=== PATIENT | female | born 2000 | race Caucasian/White ===

== ENCOUNTER 2020-02-11 16:15 | Emergency (ER) | payer OTHER ==
[~2020-02-11] VITALS: Ht 152.4 cm; Wt 68.0 kg
[2020-02-11 16:59] VITALS: BP 134/87
[2020-02-11] MEDS ORDERED: ACETAMINOPHEN EXTRA STRENGTH 500 MG TAB PO ONE (17:05)
--- NOTE | 2020-02-11 17:15 | NUR ---
COVID POSITIVE PT C/O THROAT PRESSURE X 1 WK TESTED POSITIVE ON 02/09/20 MILD DYSPHAGIA TAKING IBUPROFEN 800 MG Q8H WITHOUT RELIEF, LAST TAKEN AT 8AM TODAY TACHY LOW 120, TEMP 100.6 AT TRIAGE ALERT, NO RESP DISTRESS HX- HYPOTHYROIDISM
--- NOTE | 2020-02-11 17:37 | NUR ---
ICE PACKS GIVEN TO PT AT THIS TIME FOR COOLING.
--- NOTE | 2020-02-11 18:21 | NUR ---
PER MONCHO PERALTA, NO FURTHER INTERVENTION FOR TEMP OF 100.5 AT THIS TIME MONCHO PERALTA AWARE OF HR 118
[2020-02-11] MEDS ORDERED: HYDROcodone/APAP 10/325 MG 1 TAB TAB PO PRN (19:30)
[2020-02-11 20:18] VITALS: BP 129/81
--- NOTE | 2020-02-11 20:19 | NUR ---
Patient discharged with v/s stable. Written and verbal after care instructions given and explained. Patient alert, oriented and verbalized understanding of instructions. Ambulatory with steady gait. All questions addressed prior to discharge. ID band removed. Patient advised to follow up with PMD. Rx of AMOXICILLIN AND NORCO given. Patient educated on indication of medication including possible reaction and side effects. Opportunity to ask questions provided and answered.
== END 2020-02-11 20:19 | disposition home or self-care (01) ==
LOC: MED 16:15
DX: U07.1 COVID-19 (principal); R50.9 Fever, unspecified; J02.9 Acute pharyngitis, unspecified
CPT/HCPCS: 99283

== ENCOUNTER 2022-01-06 01:52 | Emergency (ER) | payer OTHER ==
[~2022-01-06] VITALS: Ht 152.4 cm; Wt 82.6 kg
[2022-01-06 01:58] VITALS: BP 139/97
--- NOTE | 2022-01-06 02:06 | NUR ---
PT TAKEN TO BED 02.
--- NOTE | 2022-01-06 02:47 | NUR ---
21 Y/O FEMALE BIBS FROM HOME, C/O 01/25 CHEST TIGHTNESS NONRAD XFRIDAY. REPORTS SOB. STATES SHE HAD BOOSTER ON , SYMPTOMS BEGAN SINCE THEN. +H/A +SORE THROAT. UNLABORED BREATHING; A/OX4, GCS-15; AMBULATORY WITHOUT ASSISTANCE; -N/V/D. SKIN IS NORMAL, WARM, AND DRY. PT SEATED ON BED WITH HOB RAISED, BED IN LOWEST SETTING, AND RAIL UP X1. NO PMH NKA
--- NOTE | 2022-01-06 02:48 | NUR ---
DR. RECIO AT BEDSIDE FOR EXAMINATION
--- NOTE | 2022-01-06 03:11 | NUR ---
LAB KATIE AT BEDSIDE
[2022-01-06 03:18] LABS: BASOPHILS # (AUTO) 0.1 K/uL (0.00-0.22); EOSINOPHILS # (AUTO) 0.2 K/uL (0-0.4); EOSINOPHILS % (AUTO) 2.1 % (0.0-4.0); HEMATOCRIT 36.8 % (36-48); HEMOGLOBIN 12.4 g/dL (12.0-16.0); LYMPHOCYTES % (AUTO) 26.9 % (20.5-51.1); MEAN CORPUSCULAR HEMOGLOBIN 28 pg (27-31); MEAN CORPUSCULAR HGB CONC 34 g/dL (33-37); MEAN CORPUSCULAR VOLUME 83.6 fL (80-94); MONOCYTES # (AUTO) 0.7 K/uL (0.8-1.0); NEUTROPHILS # (AUTO) 4.4 K/uL (1.8-7.7); PLATELET COUNT (AUTO) 476 K/uL (140-450); RED CELL DISTRIBUTION WIDTH 13.5 % (11.6-13.7); WHITE BLOOD COUNT (AUTO) 7.4 K/uL (4.8-10.8)
[2022-01-06 03:56] LABS: ALBUMIN 3.7 g/dL (3.4-5.0); ASPARTATE AMINOTRANSFERASE 134 U/L (15-37); CARBON DIOXIDE 30.8 mmol/L (21-32); CHLORIDE 102 mmol/L (98-107); CREATININE 0.8 mg/dL (0.6-1.3); FREE T4 (FREE THYROXINE) 0.97 ng/dL (0.76-1.46); GFR ARICAN-AMERICAN 114 mL/min (>90); GLUCOSE 103 mg/dL (74-106); LIPASE 72 U/L (73-393); POTASSIUM 3.8 mmol/L (3.5-5.1); SODIUM SERUM 140 mmol/L (136-145); THYROID STIMULATING HORMONE 9.77 uIU/mL (0.34-3.74); TOTAL BILIRUBIN 0.5 mg/dL (0.0-1.0); UREA NITROGEN, BLOOD 9 mg/dL (7-18)
[2022-01-06] MEDS ORDERED: KETOROLAC 30 MG/ML VIAL ONE (04:07)
[2022-01-06] MEDS: KETOROLAC 30 MG/ML VIAL IM ONE (04:14)
--- NOTE | 2022-01-06 04:28 | NUR ---
CAMERON CARD ATBEDSIDE DISCUSSING PT RESULTS
[2022-01-06] MEDS ORDERED: NAPR-54 PO (04:31)
[2022-01-06 04:36] VITALS: BP 121/88
--- NOTE | 2022-01-06 04:37 | NUR ---
Patient discharged with v/s stable. Written and verbal after care instructions given and explained. Patient alert, oriented and verbalized understanding of instructions. Ambulatory with steady gait. All questions addressed prior to discharge. ID band removed. Patient advised to follow up with PMD. Rx of NAPROSYN given. Patient educated on indication of medication including possible reaction and side effects. Opportunity to ask questions provided and answered. VSS, A/OX4, UNLABORED BREATHING, AMBULATORY, AND CALM DEMEANOR.
== END 2022-01-06 04:36 | disposition home or self-care (01) ==
LOC: MED 01:52
DX: B34.9 Viral infection, unspecified (principal); R07.9 Chest pain, unspecified; J02.9 Acute pharyngitis, unspecified; R51.9 Headache, unspecified
CPT/HCPCS: 36415; 80053; 83690; 84439; 84443; 84484; 85025; 85379; 93005; 96372; 99284; J1885

== ENCOUNTER 2022-09-26 19:21 | Emergency (ER) | payer OTHER ==
[~2022-09-26] VITALS: Ht 152.4 cm; Wt 78.2 kg
[~2022-09-26 19:21] MED LIST: NAPR-54 PO
[2022-09-26 19:41] VITALS: BP 156/90
[2022-09-26 20:56] LABS: BASOPHILS # (AUTO) 0.1 K/uL (0.00-0.22); BASOPHILS % (AUTO) 0.6 % (0.0-2.0); EOSINOPHILS # (AUTO) 0.3 K/uL (0-0.4); EOSINOPHILS % (AUTO) 2.9 % (0.0-4.0); HEMATOCRIT 39.8 % (36-48); HEMOGLOBIN 13.1 g/dL (12.0-16.0); LYMPHOCYTES # (AUTO) 1.6 K/uL (2.5-16.5); LYMPHOCYTES % (AUTO) 13.7 % (20.5-51.1); MEAN CORPUSCULAR HEMOGLOBIN 28 pg (27-31); MEAN CORPUSCULAR HGB CONC 33 g/dL (33-37); MEAN CORPUSCULAR VOLUME 84.5 fL (80-94); MONOCYTES # (AUTO) 0.7 K/uL (0.8-1.0); MONOCYTES % (AUTO) 6.2 % (1.7-9.3); NEUTROPHILS # (AUTO) 8.9 K/uL (1.8-7.7); NEUTROPHILS % (AUTO) 76.6 % (42.2-75.2); PLATELET COUNT (AUTO) 485 K/uL (140-450); RED BLOOD CELL COUNT(AUTO) 4.71 MIL/uL (4.20-5.40); RED CELL DISTRIBUTION WIDTH 13.8 % (11.6-13.7); WHITE BLOOD COUNT (AUTO) 11.7 K/uL (4.8-10.8)
[2022-09-26 21:18] LABS: ALBUMIN 4.1 g/dL (3.4-5.0); ANION GAP 10.5 (8-16); ASPARTATE AMINOTRANSFERASE 157 U/L (15-37); CARBON DIOXIDE 29.5 mmol/L (21-32); CHLORIDE 101 mmol/L (98-107); CREATININE 0.9 mg/dL (0.6-1.3); GFR ARICAN-AMERICAN 99 mL/min (>90); GLUCOSE 86 mg/dL (74-106); SODIUM SERUM 137 mmol/L (136-145); TOTAL BILIRUBIN 0.4 mg/dL (0.0-1.0); UREA NITROGEN, BLOOD 9 mg/dL (7-18)
--- NOTE | 2022-09-26 21:18 | NUR ---
PT TO BED 11
--- NOTE | 2022-09-26 21:20 | NUR ---
Patient resting in bed, A/Ox4, chest rise and fall symmetrical, no s/s of distress, patient on monitor.
--- NOTE | 2022-09-26 21:40 | NUR ---
Edison cantu in [facility] - 09/26/22 at 2244 by [id number] Patient resting in bed, A/Ox4, chest rise and fall symmetrical, no s/s of distress, patient on monitor.
--- NOTE | 2022-09-26 22:30 | NUR ---
Patient resting in bed, A/Ox4, chest rise and fall symmetrical, no s/s of distress, patient on monitor.
[2022-09-26] MEDS ORDERED: ALUMINUM HYD/MAG/SIMETHICONE 30 ML UDC PO ONE (23:05)
[2022-09-26] MEDS ORDERED: FAMOTIDINE 20 MG TAB PO ONE (23:05)
[2022-09-26] MEDS ORDERED: FAMO-90 PO (23:45)
[2022-09-26 23:53] VITALS: BP 132/89
== END 2022-09-26 23:53 | disposition home or self-care (01) ==
LOC: MED 19:21
DX: K21.9 Gastro-esophageal reflux disease without esophagitis (principal); R74.01 Elevation of levels of liver transaminase levels; E03.9 Hypothyroidism, unspecified; Z79.899 Other long term (current) drug therapy
CPT/HCPCS: 36415; 71045; 80053; 84484; 85025; 93005; 99285

== ENCOUNTER 2023-07-29 12:26 | Emergency (ER) | payer OTHER ==
[~2023-07-29] VITALS: Ht 157.5 cm; Wt 72.6 kg
[~2023-07-29 12:26] MED LIST changes: +FAMO-90 PO
[2023-07-29 13:01] VITALS: BP 122/83; PULSE 98; RESP 18; TEMP 98; O2SAT 98
[2023-07-29 15:08] LABS: APPEARANCE,URINE CLEAR (CLEAR); BILIRUBIN,URINE NEGATIVE (NEGATIVE); BLOOD, URINE TRACE-I (NEGATIVE); COLOR,URINE YELLOW (YELLOW); LEUKOCYTE ESTERASE ,URINE TRACE (NEGATIVE); NITRITE, URINE NEGATIVE (NEGATIVE); PH,URINE 6.5 (5.0-9.0); PROTEIN,URINE NEGATIVE (NEGATIVE); UGLUCOSE NEGATIVE (NEGATIVE); UROBILINOGEN,URINE 0.2 EU/dL (0.2 - 1)
[2023-07-29 15:14] LABS: BACTERIA,URINE 0-2 /HPF (None Seen); RBC,URINE 0-5 /HPF (0-5); WBC,URINE 0-5 /HPF (0-5)
[2023-07-29 15:15] LABS: MUCUS,URINE 1+ /LPF (None Seen); SQUAMOUS EPITHELIAL CELL,UR 0-3 (FEW) /LPF (0-3 (FEW))
[2023-07-29] MEDS ORDERED: DICYCLOMINE HCL LIQUID 20 MG, ALUMINUM HYD/MAG/SIMETHICONE 30 ML, LIDOCAINE VISCOUS 2% ... PO ONE ×3 (15:30)
[2023-07-29] MEDS ORDERED: FAMOTIDINE 20 MG TAB PO ONE (15:30)
[2023-07-29 15:34] LABS: BASOPHILS % (AUTO) 0.3 % (0.0-2.0); EOSINOPHILS % (AUTO) 0.4 % (0.0-4.0); HEMATOCRIT 36.7 % (36-48); HEMOGLOBIN 12.1 g/dL (12.0-16.0); LYMPHOCYTES # (AUTO) 0.9 K/uL (2.5-16.5); LYMPHOCYTES % (AUTO) 8.2 % (20.5-51.1); MEAN CORPUSCULAR HEMOGLOBIN 28 pg (27-31); MEAN CORPUSCULAR HGB CONC 33 g/dL (33-37); MEAN CORPUSCULAR VOLUME 83.9 fL (80-94); MONOCYTES # (AUTO) 0.6 K/uL (0.8-1.0); MONOCYTES % (AUTO) 5.6 % (1.7-9.3); NEUTROPHILS # (AUTO) 9.3 K/uL (1.8-7.7); NEUTROPHILS % (AUTO) 85.5 % (42.2-75.2); PLATELET COUNT (AUTO) 484 K/uL (140-450); RED BLOOD CELL COUNT(AUTO) 4.37 MIL/uL (4.20-5.40); RED CELL DISTRIBUTION WIDTH 14.1 % (11.6-13.7); WHITE BLOOD COUNT (AUTO) 10.8 K/uL (4.8-10.8)
[2023-07-29] MEDS ORDERED: DICYCLOMINE HCL LIQUID 10 MG/5 ML UDC ONE (15:38)
[2023-07-29] MEDS ORDERED: ALUMINUM HYD/MAG/SIMETHICONE 30 ML UDC ONE (15:38)
[2023-07-29 15:39] LABS: ANION GAP 11.5 (8-16); CALCIUM 8.9 mg/dL (8.5-10.1); CARBON DIOXIDE 26.9 mmol/L (21-32); CREATININE 0.7 mg/dL (0.6-1.3); POTASSIUM 4.4 mmol/L (3.5-5.1)
[2023-07-29] MEDS ORDERED: ONDANSETRON 4 MG ODT PO ONE (15:40)
[2023-07-29 15:43] LABS: ALBUMIN 3.7 g/dL (3.4-5.0); BILIRUBIN,DIRECT 0.8 mg/dL (0.0-0.3); TOTAL BILIRUBIN 1.3 mg/dL (0.0-1.0); TOTAL PROTEIN, SERUM 8.5 g/dL (6.4-8.2)
[2023-07-29] MEDS ORDERED: MAG30ORA10 PO (18:19)
[2023-07-29] MEDS ORDERED: PANT40EC PO (18:19)
[2023-07-29] MEDS ORDERED: ONDA-188 PO (18:20)
== END 2023-07-29 18:45 | disposition home or self-care (01) ==
LOC: MED 12:26
DX: K80.50 Calculus of bile duct without cholangitis or cholecystitis without obstruction (principal); K21.9 Gastro-esophageal reflux disease without esophagitis; R74.01 Elevation of levels of liver transaminase levels; E03.9 Hypothyroidism, unspecified; Z79.899 Other long term (current) drug therapy
CPT/HCPCS: 36415; 71045; 76705; 80048; 80076; 81001; 81025; 83690; 85025; 93005; 99285; Q0162

== ENCOUNTER 2024-05-31 12:11 | Emergency (ER) | payer OTHER ==
[~2024-05-31] VITALS: Ht 152.4 cm; Wt 63.5 kg
[~2024-05-31 12:11] MED LIST changes: +MAG30ORA10 PO; +NAPR-337 PO; -NAPR-54 PO; +ONDA-188 PO; +PANT40EC PO
[2024-05-31 12:31] VITALS: BP 147/91; PULSE 87; RESP 16; TEMP 98.3; O2SAT 98
[2024-05-31 13:47] LABS: BILIRUBIN,URINE NEGATIVE (NEGATIVE); COLOR,URINE YELLOW (YELLOW); LEUKOCYTE ESTERASE ,URINE NEGATIVE (NEGATIVE); PROTEIN,URINE NEGATIVE (NEGATIVE); UGLUCOSE NEGATIVE (NEGATIVE); UROBILINOGEN,URINE 0.2 EU/dL (0.2 - 1)
[2024-05-31 13:57] LABS: MUCUS,URINE 1+ /LPF (None Seen); SQUAMOUS EPITHELIAL CELL,UR 0-3 (FEW) /LPF (0-3 (FEW))
[2024-05-31 13:58] LABS: NITRITE, URINE POSITIVE (NEGATIVE)
[2024-05-31 14:00] LABS: URINE AMORPHOUS URATE 1+ /HPF (None Seen)
[2024-05-31 14:06] LABS: BACTERIA,URINE 2+ /HPF (None Seen); BLOOD, URINE 1+ (NEGATIVE); WBC,URINE 0-5 /HPF (0-5)
[2024-05-31 14:07] LABS: RBC,URINE 0-5 /HPF (0-5)
[2024-05-31 14:09] LABS: APPEARANCE,URINE HAZY (CLEAR)
[2024-05-31 14:25] LABS: BASOPHILS # (AUTO) 0.1 K/uL (0.00-0.22); BASOPHILS % (AUTO) 0.6 % (0.0-2.0); EOSINOPHILS % (AUTO) 0.1 % (0.0-4.0); HEMATOCRIT 35.9 % (36-48); HEMOGLOBIN 11.9 g/dL (12.0-16.0); LYMPHOCYTES # (AUTO) 1.2 K/uL (2.5-16.5); LYMPHOCYTES % (AUTO) 9.9 % (20.5-51.1); MEAN CORPUSCULAR HEMOGLOBIN 28 pg (27-31); MEAN CORPUSCULAR HGB CONC 33 g/dL (33-37); MONOCYTES # (AUTO) 0.2 K/uL (0.8-1.0); MONOCYTES % (AUTO) 1.8 % (1.7-9.3); NEUTROPHILS # (AUTO) 10.7 K/uL (1.8-7.7); NEUTROPHILS % (AUTO) 87.6 % (42.2-75.2); PLATELET COUNT (AUTO) 496 K/uL (140-450); RED BLOOD CELL COUNT(AUTO) 4.22 MIL/uL (4.20-5.40); RED CELL DISTRIBUTION WIDTH 14.1 % (11.6-13.7); WHITE BLOOD COUNT (AUTO) 12.2 K/uL (4.8-10.8)
[2024-05-31 14:37] LABS: ANION GAP 11.5 (8-16); CALCIUM 9.3 mg/dL (8.5-10.1); CARBON DIOXIDE 28.6 mmol/L (21-32); CREATININE 0.6 mg/dL (0.6-1.3); POTASSIUM 4.1 mmol/L (3.5-5.1)
[2024-05-31] MEDS ORDERED: ONDA-188 PO (15:06)
[2024-05-31] MEDS ORDERED: FAMO-92 PO (15:06)
[2024-05-31 15:30] VITALS: BP 125/86; PULSE 71; RESP 16; TEMP 36.72516; O2SAT 100
== END 2024-05-31 15:30 | disposition home or self-care (01) ==
LOC: MED 12:11
DX: K29.70 Gastritis, unspecified, without bleeding (principal); E73.9 Lactose intolerance, unspecified; Z79.899 Other long term (current) drug therapy; E03.9 Hypothyroidism, unspecified
CPT/HCPCS: 36415; 80048; 81001; 81025; 83690; 85025; 87086; 99285